=== PATIENT | female | born 1975 | race African-American/Black ===

== ENCOUNTER 2017-12-01 15:25 | Emergency (ER) | payer OTHER ==
[2017-12-01 15:35] VITALS: BMI 26.3
[2017-12-01] MEDS ORDERED: SODIUM CHLORIDE 1,000 ML IV STA (16:17)
[2017-12-01] MEDS ORDERED: ACETAMINOPHEN 1000 MG/100 ML VIAL (NON FORMULARY) IVPB ONE (16:17)
--- NOTE | 2017-12-01 16:29 | PDOC ---
History of Present Illness - History of Present Illness Initial Comments: 12/01/17 16:44 Patient is a 42 F, with no significant PMHx, who presents with her for 1 day of abdominal pain. Patient reports that her abdominal pain began yesterday afternoon, and describes it as gradual onset, constant, sharp, burning , rates 8/10, and begins in her lower quadrant and radiates up to her mid- epigastric and thoracic/lumbar midline. Patient states that she has never experienced this before. Patient also reports associated nausea but denies vomiting. She reports no change with her eating habits, reports regular bowel movements. She denies fever, chills, shortness of breath, vomiting, or diarrhea. She reports that her last menstrual period was October 18, and states that she hasn't had her period this month and its possible that she is . She did not take anything for the pain. She returned from [facility] 11 months ago. PCP: Donaldo Marie <Anusha Lim - Last Filed: 12/01/17 16:48> <Rosa Maria Allison - Last Filed: 12/01/17 21:13> - General History Source: Patient, Family, Old Records <Jose Wiggins - Last Filed: 12/06/17 08:09> - General Chief Complaint: Pain, Acute Stated Complaint: STOMACH PAIN Time Seen by Provider: 12/01/17 15:41 Past History <Anusha Lim - Last Filed: 12/01/17 16:48> <Rosa Maria Allison - Last Filed: 12/01/17 21:13> - Past Medical History COPD: No Other medical history: DENIES. - Suicide/Smoking/Psychosocial Hx Smoking History: Never smoked <Jose Wiggins - Last Filed: 12/06/17 08:09> - Past Medical History Allergies/Adverse Reactions: Allergies Allergy/AdvReac Type Severity Reaction Status Date / Time No Known Allergies Allergy Verified 12/01/17 15:31 Home Medications: Ambulatory Orders Acetaminophen [Tylenol] 650 mg PO PRN 12/01/17 Acetaminophen [Tylenol] 650 mg PO Q4H PRN #20 tablet 12/01/17 Vit Calc,Iron,Folic [ Vitamins] 1 each PO DAILY #30 tablet Review of Systems - Review of Systems Comments:: 12/01/17 16:46 GENERAL/CONSTITUTIONAL: No fever or chills. No weakness. HEAD, EYES, EARS, NOSE AND THROAT: No change in vision. No ear pain or discharge. No sore throat. CARDIOVASCULAR: No chest pain or shortness of breath. RESPIRATORY: No cough, wheezing, or hemoptysis. GASTROINTESTINAL: +abdominal pain, +nausea, no vomiting, diarrhea or constipation. GENITOURINARY: No dysuria, frequency, or change in urination. MUSCULOSKELETAL: No joint or muscle swelling or pain. No neck or back pain. SKIN: No rash NEUROLOGIC: No headache, vertigo, loss of consciousness, or change in strength/ sensation. ENDOCRINE: No increased thirst. No abnormal weight change. HEMATOLOGIC/LYMPHATIC: No anemia, easy bleeding, or history of blood clots. ALLERGIC/IMMUNOLOGIC: No hives or skin allergy. <Anusha Lim - Last Filed: 12/01/17 16:48> *Physical Exam - Vital Signs Last Vital Signs Temp Pulse Resp BP Pulse Ox 98.4 F 79 19 114/66 100 12/01/17 15:31 12/01/17 15:31 12/01/17 15:31 12/01/17 15:31 12/01/17 15:31 - Physical Exam Comments: 12/01/17 16:48 GENERAL: Awake, alert, and fully oriented, in no mild distress HEAD: No signs of trauma EYES: PERRLA, EOMI, sclera anicteric, conjunctiva clear ENT: Auricles normal inspection, hearing grossly normal, nares patent, oropharynx clear without exudates. Moist mucosa NECK: Normal ROM, supple, no lymphadenopathy, JVD, or masses LUNGS: Breath sounds equal, clear to auscultation bilaterally. No wheezes, and no crackles HEART: Regular rate and rhythm, normal S1 and S2, no murmurs, rubs or gallops ABDOMEN: Soft, periumbilical tenderness, normoactive bowel sounds. No guarding , no rebound. No masses EXTREMITIES: Normal range of motion, no edema. No clubbing or cyanosis. No cords, erythema, or tenderness NEUROLOGICAL: Cranial nerves II through XII grossly intact. Normal speech, normal gait SKIN: Warm, Dry, normal turgor, no rashes or lesions noted. <Anusha Lim - Last Filed: 12/01/17 16:48> - Vital Signs Last Vital Signs Temp Pulse Resp BP Pulse Ox 98.4 F 79 19 114/66 100 12/01/17 15:31 12/01/17 15:31 12/01/17 15:31 12/01/17 15:31 12/01/17 15:31 <Rosa Maria Allison - Last Filed: 12/01/17 21:13> - Vital Signs Last Vital Signs Temp Pulse Resp BP Pulse Ox 98.4 F 79 19 114/66 100 12/01/17 15:31 12/01/17 15:31 12/01/17 15:31 12/01/17 15:31 12/01/17 15:31 <Jose Wiggins - Last Filed: 12/06/17 08:09> ED Treatment Course - LABORATORY CBC & Chemistry Diagram: 12/01/17 17:06 12/01/17 17:06 - ADDITIONAL ORDERS Additional order review: Laboratory Results 12/01/17 12/01/17 12/01/17 17:20 17:06 17:06 Sodium 137 Potassium 3.6 Chloride 101 Carbon Dioxide 24 Anion Gap 12 BUN 7 Creatinine 0.7 Creat Clearance w eGFR > 60 Random Glucose 83 Calcium 8.5 Magnesium 2.1 Total Bilirubin 0.7 AST 10 L ALT 11 L Alkaline Phosphatase 72 Creatine Kinase 86 Troponin I < 0.02 Total Protein 7.8 Albumin 3.6 Lipase 147 Beta HCG, Quant 44236.5 Serum , Qual Urine Color Urine Appearance Urine pH Ur Specific Pierron Urine Protein Urine Glucose (UA) Urine Ketones Urine Blood Urine Nitrite Urine Bilirubin Urine Urobilinogen Ur Leukocyte Esterase Urine WBC (Auto) Urine RBC (Auto) Ur Epithelial Cells Urine Mucus Blood Type O POSITIVE Antibody Screen Cancelled 12/01/17 12/01/17 17:06 17:06 Sodium Potassium Chloride Carbon Dioxide Anion Gap BUN Creatinine Creat Clearance w eGFR Random Glucose Calcium Magnesium Total Bilirubin AST ALT Alkaline Phosphatase Creatine Kinase Troponin I Total Protein Albumin Lipase Beta HCG, Quant Serum , Qual Positive Urine Color Yellow Urine Appearance Clear Urine pH 6.0 Ur Specific Pierron 1.025 Urine Protein Negative Urine Glucose (UA) Negative Urine Ketones 2+ H Urine Blood Negative Urine Nitrite Negative Urine Bilirubin Negative Urine Urobilinogen 4.0 e.u/dl H Ur Leukocyte Esterase Trace Urine WBC (Auto) <1 Urine RBC (Auto) 4 Ur Epithelial Cells Rare Urine Mucus Few Blood Type Antibody Screen 12/01/17 17:06 RBC 4.02 MCV 87.8 MCHC 34.0 RDW 14.4 MPV 9.2 Neutrophils % 51.5 Lymphocytes % 36.6 Monocytes % 6.7 Eosinophils % 4.4 Basophils % 0.8 - Medications Given in the ED: ED Medications Discontinued Medications Generic Name Dose Route Start Last Admin Trade Name Be PRN Reason Stop Dose Admin Acetaminophen 1,000 mg 12/01/17 16:17 12/01/17 17:10 Ofirmev Injection - IVPB 12/01/17 16:18 1,000 mg ONCE ONE Administration Sodium Chloride 1,000 mls @ 1,000 mls/hr 12/01/17 16:17 12/01/17 17:10 Normal Saline - IV 12/01/17 17:16 1,000 mls/hr ASDIR STA Administration <Rosa Maria Allison - Last Filed: 12/01/17 21:13> - LABORATORY CBC & Chemistry Diagram: 12/01/17 17:06 12/01/17 17:06 <Jose Wiggins - Last Filed: 12/06/17 08:09> Medical Decision Making - Medical Decision Making 12/01/17 21:13 Patient Name: ST DELE[facility] THIS IS A PRELIMINARY REPORT FROM [facility] [employer] MACHINE OPERATOR DATE OF SERVICE: 2017-12-01 18:50:35 IMAGES: 38 EXAM: Transabdominal and transvaginal OB ultrasound HISTORY: Lower abdominal pain COMPARISON: None. FINDINGS: There is a single live intrauterine . Estimated gestational age is 6 weeks 2 days. heart rate is 132 beats per minute. Cervix is grossly closed. No cul-de-sac effusion. 2.0 cm right ovarian cyst noted. Intact blood flow is demonstrated to both ovaries. THIS DOCUMENT HAS BEEN ELECTRONICALLY SIGNED <Rosa Maria Allison - Last Filed: 12/01/17 21:13> - Medical Decision Making 12/01/17 16:27 A portion of this note was documented by scribe services under my direction. I have reviewed the details of the note, within reason, and agree with the documentation with the following case summary and management plan written by me. Patient treated in the ED. Nursing notes are reviewed and incorporated into the medical decision-making. Vital signs reviewed. Peripheral IV access obtained by the nurse, laboratory studies are drawn and sent, reviewed and interpreted by myself. Vital Signs Temp Pulse Resp BP Pulse Ox 98.4 F 79 19 114/66 100 12/01/17 15:31 18 15:31 18 15:31 18 15:31 12/01/17 15:31 42-year-old female with no past medical history presents with lower abdominal pain since yesterday. The patient reports to constant epigastric abdominal pain. No nausea, vomiting. No dysuria vaginal bleeding. Patient however did miss her period approximate one month ago. Denies take any medications came to the ED for further evaluation. It will be important to check for patient's status. If the patient is , we will need to rule out ectopic been to see versus threatened . We'll obtain blood work. However, if the tests are negative for , should consider etiology such as appendicitis. Reassess. 12/01/17 18:45 CBC, BMP 12/01/17 17:06 12/01/17 17:06 CMP Sodium 137 mmol/L (136-145) 12/01/17 17:06 Potassium 3.6 mmol/L (3.5-5.1) 12/01/17 17:06 Chloride 101 mmol/L (98-107) 12/01/17 17:06 Carbon Dioxide 24 mmol/L (21-32) 12/01/17 17:06 Anion Gap 12 (8-16) 12/01/17 17:06 BUN 7 mg/dL (7-18) 12/01/17 17:06 Creatinine 0.7 mg/dL (0.55-1.02) 12/01/17 17:06 Creat Clearance w eGFR > 60 (>60) 12/01/17 17:06 Random Glucose 83 mg/dL (74-106) 12/01/17 17:06 Calcium 8.5 mg/dL (8.5-10.1) 12/01/17 17:06 Magnesium 2.1 mg/dL (1.8-2.4) 12/01/17 17:06 Total Bilirubin 0.7 mg/dL (0.2-1.0) 12/01/17 17:06 AST 10 U/L (15-37) L 12/01/17 17:06 ALT 11 U/L (12-78) L 12/01/17 17:06 Alkaline Phosphatase 72 U/L (45-117) 12/01/17 17:06 Creatine Kinase 86 IU/L (26-192) 12/01/17 17:06 Troponin I < 0.02 ng/ml (0.00-0.05) 12/01/17 17:06 Total Protein 7.8 g/dl (6.4-8.2) 12/01/17 17:06 Albumin 3.6 g/dl (3.4-5.0) 12/01/17 17:06 Lipase 147 U/L (73-393) 12/01/17 17:06 Beta HCG, Quant 86580.5 mIU/ml 12/01/17 17:20 Serum , Qual Positive 12/01/17 17:06 Urine Test Results Urine Color Yellow 12/01/17 17:06 Urine Appearance Clear 12/01/17 17:06 Urine pH 6.0 (5.0-8.0) 12/01/17 17:06 Ur Specific Pierron 1.025 (1.001-1.035) 12/01/17 17:06 Urine Protein Negative (NEGATIVE) 12/01/17 17:06 Urine Glucose (UA) Negative (NEGATIVE) 12/01/17 17:06 Urine Ketones 2+ (NEGATIVE) H 12/01/17 17:06 Urine Blood Negative (NEGATIVE) 12/01/17 17:06 Urine Nitrite Negative (NEGATIVE) 12/01/17 17:06 Urine Bilirubin Negative (NEGATIVE) 12/01/17 17:06 Ur Leukocyte Esterase Trace (NEGATIVE) 12/01/17 17:06 Ur Epithelial Cells Rare /HPF (FEW) 12/01/17 17:06 Urine Mucus Few 12/01/17 17:06 Labs reviewed. Informed patient that her test is positive. Beta HCG 34k LMP is October 18. Pt has been now 3 times (with two pregnancies in FT deliveries, with one with twins). Denies vaginal bleeding. Tylenol had resolved the pain. If the ultrasound is unremarkable and confirms IUP, the patient can be discharged with studio data analyst follow up. 12/01/17 19:02 Case signed out to DR. Allison for further management and disposition. <Jose Wiggins - Last Filed: 12/06/17 08:09> *DC/Admit/Observation/Transfer - Attestations Scribe Attestion: 12/01/17 16:47 Documentation prepared by Anusha Lim, acting as director medical safety for Jose Wiggins MD. <Anusha Lim - Last Filed: 12/01/17 16:48> <Rosa Maria Allison - Last Filed: 12/01/17 21:13> <Jose Wiggins - Last Filed: 12/06/17 08:09> Diagnosis at time of Disposition: 6 weeks gestation of Qualifiers: Weeks of gestation: unspecified Qualified Code(s): Z34.90 - Encounter for supervision of normal , unspecified, unspecified trimester - Discharge Dispostion Disposition: HOME Condition at time of disposition: Stable - Prescriptions Prescriptions: Acetaminophen [Tylenol] 650 mg PO Q4H PRN #20 tablet PRN Reason: Pain/Fever Vit Calc,Iron,Folic [ Vitamins] 1 each PO DAILY #30 tablet - Referrals Referrals: Donaldo Marie [Primary Care Provider] - Francis Christian MD [Staff Physician] - - Patient Instructions Printed Discharge Instructions: DI for Abdominal Pain -- Early Additional Instructions: Please follow up with your doctor. Take the copy of the results and review with your studio data analyst. Please call to schedule an appointment. Take a daily vitamin. Take 650 mg tylenol every 4 hours as needed for pain. This is safe for . Print Language: BHUTANESE - Post Discharge Activity
[2017-12-01] MEDS ORDERED: ACETAMINOPHEN INJECTION 100 ML IVPB ONE (16:52)
[2017-12-01] MEDS ORDERED: ONDANSETRON 4 MG/2 ML VIAL ONE (16:52)
[2017-12-01 17:26] LABS: URINE APPEARANCE CLEAR; URINE BILIRUBIN NEGATIVE (NEGATIVE); URINE BLOOD NEGATIVE (NEGATIVE); URINE COLOR YELLOW; URINE GLUCOSE (UA) NEGATIVE (NEGATIVE); URINE KETONE 2+ (NEGATIVE); URINE LEUK ESTERASE TRACE (NEGATIVE); URINE NITRITE NEGATIVE (NEGATIVE); URINE PROTEIN NEGATIVE (NEGATIVE); URINE UROBILINOGEN 4.0 E.U/dl mg/dL (0.2-1.0)
[2017-12-01 17:31] LABS: EPI CELLS RARE /HPF (FEW); URINE MUCUS FEW
[2017-12-01 17:41] LABS: BASO % 0.8 % (0-2.0); EOS % 4.4 % (0-4.5); HEMATOCRIT 35.3 % (32.4-45.2); LYMPH % 36.6 % (8-40); MCH 29.9 pg (25.7-33.7); MEAN CELL VOLUME 87.8 fl (80-96); MEAN PLT VOLUME 9.2 fl (7.5-11.1); MONO % 6.7 % (3.8-10.2); NEUT % 51.5 % (42.8-82.8); PLATELET COUNT 265 K/MM3 (134-434); RBC 4.02 M/mm3 (3.60-5.2); RDW 14.4 % (11.6-15.6); WHITE BLOOD COUNT 7.7 K/mm3 (4.0-10.0)
[2017-12-01 17:51] LABS: ALBUMIN 3.6 g/dl (3.4-5.0); ANION GAP 12 (8-16); BILIRUBIN,TOTAL 0.7 mg/dL (0.2-1.0); BLOOD UREA NITROGEN 7 mg/dL (7-18); CALCIUM 8.5 mg/dL (8.5-10.1); CHLORIDE 101 mmol/L (98-107); CO2 24 mmol/L (21-32); CREATININE 0.7 mg/dL (0.55-1.02); GLUCOSE,RANDOM 83 mg/dL (74-106); LIPASE 147 U/L (73-393); MAGNESIUM 2.1 mg/dL (1.8-2.4); POTASSIUM 3.6 mmol/L (3.5-5.1); SGOT/AST 10 U/L (15-37); SGPT/ALT 11 U/L (12-78); SODIUM 137 mmol/L (136-145); TOT PROT 7.8 g/dl (6.4-8.2)
[2017-12-01 17:54] LABS: ALK PHOS 72 U/L (45-117)
[2017-12-01 21:22] VITALS: BP 118/69; PULSE 80; TEMP 97.9
--- NOTE | 2017-12-04 01:11 | EKG ---
Test Reason : Blood Pressure : / mmHG Vent. Rate : 071 BPM Atrial Rate : 071 BPM P-R Int : 164 ms QRS Dur : 076 ms QT Int : 380 ms P-R-T Axes : 077 050 043 degrees QTc Int : 412 ms NORMAL SINUS RHYTHM NORMAL ECG NO PREVIOUS ECGS AVAILABLE Confirmed by JOCELYNE MALONEY, SAMANTHA ([id number]) on 12/04/2017 1:10:59 AM Referred By: Confirmed By:SAMANTHA CASANOVA MD
== END 2017-12-01 21:23 | disposition home or self-care (01) ==
LOC: JER 15:25
PROC: 3E033NZ Introduction of Analgesics, Hypnotics, Sedatives into Peripheral Vein, Percutaneous Approach (ICD-10-PCS; principal; 2017-12-01)
DX: O26.891 Other specified pregnancy related conditions, first trimester (principal); R10.30 Lower abdominal pain, unspecified; Z3A.01 Less than 8 weeks gestation of pregnancy
CPT/HCPCS: 36415; 76817-TC; 80053; 81003; 81015; 82550; 83690; 83735; 84484; 84702; 84703; 85025; 86900; 87086; 93005; 93010; 96374; 99284-25; J0131; J7030

== ENCOUNTER 2017-12-12 13:35 | Emergency (ER) | payer OTHER ==
[2017-12-12 14:02] VITALS: TEMP 98.6; BMI 27.4
[2017-12-12] MEDS ORDERED: MAG HYDROX/AL HYDROX/SIMETH 30 ML UNIT-DOSE CUP PO ONE (14:37)
[2017-12-12] MEDS ORDERED: ONDANSETRON 4 MG TABLET PO ONE (14:37)
[2017-12-12] MEDS ORDERED: RANITIDINE HCL 150 MG TABLET (FP) PO ONE (14:37)
[2017-12-12] MEDS ORDERED: SUCRALFATE 1 GM TABLET (FP) PO ONE (14:37)
--- NOTE | 2017-12-12 14:38 | PDOC ---
History of Present Illness - General Chief Complaint: Chest Pain Stated Complaint: CHEST PAIN Time Seen by Provider: 12/12/17 14:00 - History of Present Illness Initial Comments: 12/12/17 14:01 42 yo G LMP at [facility] p/w chest pain. Patient reports 2 weeks of intermittent , sharp, burning, retrosternal chest pain worse with PO intake. Pain non positional. Pain radiates to back between shoulder blades and asx. with daily bilious, non bloody emesis. Patient reports acute blood streaked sputum this AM. Denies radiation of pain to jaw, neck, shoulder, arm. No sensory changes in exts. or weakness. Denies PO intake of medication. Denies F/C, SOB, palpitations , wheezing, coughing, vaginal bleeding/discharge/brunign, or dsyuria, hematuria , flank pain, diarrhea, consitpation. Denies h/o PUD, GI pathology, or abdominal procedures. Does not f/w GI. Denies h/o endoscopy. Not on PPI therapy. Does not follow with FILLER SHREDDER. Transvaginal U/S ( 12/01/17) with viable IUP 6w2d. PMD Dr. Donaldo Marie. Denies tobacco, alcohol, or illicit drug use. Past History - Past Medical History Allergies/Adverse Reactions: Allergies Allergy/AdvReac Type Severity Reaction Status Date / Time No Known Allergies Allergy Verified 12/01/17 15:31 Home Medications: Ambulatory Orders Acetaminophen [Tylenol] 650 mg PO PRN 12/01/17 Acetaminophen [Tylenol] 650 mg PO Q4H PRN #20 tablet 12/01/17 Vit Calc,Iron,Folic [ Vitamins] 1 each PO DAILY #30 tablet Cephalexin Monohydrate [Keflex -] 500 mg PO BID 7 Days #13 capsule MDD 2 tab Famotidine [Pepcid] 40 mg PO DAILY PRN #10 tablet MDD 1 tab 12/12/17 Ondansetron HCl [Zofran] 4 mg PO PRN PRN #10 tablet MDD 1 tab 12/12/17 COPD: No - Reproductive History (#): 2 Para: 1 - Immunization History Immunization Up to Date: Yes - Suicide/Smoking/Psychosocial Hx Smoking History: Never smoked Review of Systems - Review of Systems Comments:: 12/12/17 14:02 GENERAL/CONSTITUTIONAL: No fever, no lethargy HEAD, EYES, EARS, NOSE AND THROAT: No eye discharge. No ear pain or discharge. No sore throat. CARDIOVASCULAR: No chest pain. RESPIRATORY: No cough, no wheezing. GASTROINTESTINAL: + Abdominal pain, nausea,and vomiting. No diarrhea or constipation. GENITOURINARY: No dysuria, no change in urine output MUSCULOSKELETAL: No joint pain. No neck or back pain. SKIN: No rash NEUROLOGIC: No headache, loss of consciousness, irritability. ENDOCRINE: No increased thirst. No abnormal weight change. ALLERGIC/IMMUNOLOGIC: No hives or skin allergy *Physical Exam - Physical Exam Comments: 12/12/17 14:02 GENERAL: Awake, alert, and fully oriented, in no acute distress HEAD: No signs of trauma, normocephalic, atraumatic EYES: PERRLA, EOMI, sclera anicteric, conjunctiva clear ENT: Dry mucous membranes.Hearing grossly normal, nares patent, oropharynx clear without exudates. NECK: Normal ROM, supple, no lymphadenopathy, JVD, or masses LUNGS: No distress, speaks full sentences, clear to auscultation bilaterally HEART: Regular rate and rhythm, normal S1 and S2, no murmurs, rubs or gallops, peripheral pulses normal and equal bilaterally. ABDOMEN: Soft, epigatsirc and RUQ ttp, normoactive bowel sounds. No guarding, no rebound, no rigidity. No masses. Neg CVA ttp. Neg surpapubic ttp. EXTREMITIES : Normal inspection, Normal range of motion, no edema. No clubbing or cyanosis. SKIN: Warm, Dry, normal turgor, no rashes or lesions noted ED Treatment Course - LABORATORY CBC & Chemistry Diagram: 12/12/17 14:40 12/12/17 14:40 Medical Decision Making - Medical Decision Making 12/12/17 14:46 42 yo F with no significant pmh who p/w 2 weeks of intermittent, sharp, burning , retrosternal chest pain worse with PO intakeand w/ radiation to back between shoulder blades. Asx. w/ daily bilious, non bloody emesis. Endorses blood streaked sputum this AM. Denies PO intake of medication. Denies F/C, SOB, palpitations, wheezing, radiation of pain to jaw, neck, shoulder, arm, vaginal bleeding/discharge/brunign, or dsyuria, hematuria, flank pain, diarrhea, consitpation, sensory changes in exts., weakness, or coughing. Denies h/o GI pathology, abdominal procedures, endoscopy.Transvaginal U/S ( 12/01/17) with viable IUP 6w2d. PMD Dr. Donaldo Marie. Denies tobacco, alcohol, or illicit drug use. Physical exam notable for epigatsirc and RUQ ttp. HDS. ACS/GA r/o. Low suspicion of pancreatitis, appendicitis based on history and physical. Differential also gastritis, esophagitis, cholelithiasis yoan shane vs. borheaave ( less likely as pt. with absent physical findings). No vaginal bleeding or lower abdominal pain to suggest threatened , GAEL, placenta previa, or ectopic preg. ED Course: CBC, CMP, Lipase, HCG, Cardiac Pr EKG, CXR, RUQ U/S Maloox, Carafate, Ranitidine, Zofran, NS 12/12/17 15:05 12/12/17 15:10 CBC: Unremarkable 12/12/17 15:52 CMP: Unremarkable Lipase: Unremarkable UA: cloudy with 1 + blood, 15 RBC's, trace leukocyte esterase. 12/12/17 15:53 Keflex 500 mg 12/12/17 15:54 Keflex sent to pharmacy 12/12/17 18:33 Pt. stable for d/c with return precautions. Advised to f/u with FILLER SHREDDER, GI. 12/12/17 18:54 GB U/S: Unremarkable *DC/Admit/Observation/Transfer Diagnosis at time of Disposition: Abdominal pain during in first trimester - Prescriptions Prescriptions: Cephalexin Monohydrate [Keflex -] 500 mg PO BID 7 Days #13 capsule MDD 2 tab - Referrals Referrals: Donaldo Marie [Primary Care Provider] - Rosario Corey MD [Staff Physician] - Francis Christian MD [Staff Physician] - Dilip Cabrera MD [Staff Physician] - - Patient Instructions Printed Discharge Instructions: DI for Atypical Chest Pain, DI for Abdominal Pain -- Early Additional Instructions: Please return to the emergency department with any new or worsening symptoms or concerns. Please follow up with your primary care physician within 72 hours. Please follow up with GI within one week. Please follow with Special Education Secretary within one week. Please take Keflex 500 mg twice daily for the next 7 days. Can use Pepcid and Zofran as needed. - Post Discharge Activity - Attestations Physician Attestion: 12/12/17 14:03 I attest to the information provided in this note.
[2017-12-12] MEDS ORDERED: SODIUM CHLORIDE 1,000 ML IV STA (14:43)
[2017-12-12] MEDS ORDERED: ONDANSETRON 4 MG/2 ML VIAL IVPB ONE (14:51)
[2017-12-12] MEDS ORDERED: RANITIDINE HCL 150 MG TABLET (FP) ONE (14:51)
[2017-12-12] MEDS ORDERED: ONDANSETRON 4 MG/2 ML VIAL ONE (14:52)
[2017-12-12] MEDS ORDERED: MAG HYDROX/AL HYDROX/SIMETH 30 ML UNIT-DOSE CUP ONE (14:52)
[2017-12-12] MEDS ORDERED: SUCRALFATE 1 GM TABLET (FP) ONE (14:52)
[2017-12-12 14:56] LABS: BASO % 0.5 % (0-2.0); EOS % 3.4 % (0-4.5); HEMATOCRIT 34.1 % (32.4-45.2); HEMOGLOBIN 11.7 GM/dL (10.7-15.3); MCH 30.1 pg (25.7-33.7); MCHC 34.2 g/dl (32.0-36.0); MEAN CELL VOLUME 88.1 fl (80-96); MEAN PLT VOLUME 9.2 fl (7.5-11.1); NEUT % 55.1 % (42.8-82.8); PLATELET COUNT 258 K/MM3 (134-434); RBC 3.87 M/mm3 (3.60-5.2); RDW 14.4 % (11.6-15.6); WHITE BLOOD COUNT 6.5 K/mm3 (4.0-10.0)
[2017-12-12 15:01] LABS: URINE APPEARANCE SLCLOUDY; URINE BLOOD 1+ (NEGATIVE); URINE COLOR AMBER; URINE GLUCOSE (UA) NEGATIVE (NEGATIVE); URINE KETONE 2+ (NEGATIVE); URINE LEUK ESTERASE TRACE (NEGATIVE); URINE NITRITE NEGATIVE (NEGATIVE); URINE UROBILINOGEN 4.0 E.U/dl mg/dL (0.2-1.0)
[2017-12-12 15:06] LABS: URINE PROTEIN 2+ (NEGATIVE)
[2017-12-12 15:12] LABS: INR 1.19 (0.82-1.09); PROTHROMBIN TIME (PATIENT) 13.4 SEC (9.98-11.88)
[2017-12-12 15:19] LABS: ALBUMIN 3.7 g/dl (3.4-5.0); ALK PHOS 67 U/L (45-117); ANION GAP 10 (8-16); BILIRUBIN,TOTAL 0.7 mg/dL (0.2-1.0); BLOOD UREA NITROGEN 5 mg/dL (7-18); CALCIUM 9.4 mg/dL (8.5-10.1); CHLORIDE 101 mmol/L (98-107); CO2 26 mmol/L (21-32); CREATININE 0.6 mg/dL (0.55-1.02); GLUCOSE,RANDOM 87 mg/dL (74-106); SGPT/ALT 8 U/L (12-78); SODIUM 137 mmol/L (136-145); TOT PROT 7.7 g/dl (6.4-8.2)
--- NOTE | 2017-12-12 15:37 | PDOC ---
Attending Attestation - Resident Resident Name: Shaka Phillips - ED Attending Attestation I have performed the following: I have examined & evaluated the patient, The case was reviewed & discussed with the resident, I agree w/resident's findings & plan, Exceptions are as noted - HPI HPI: 12/12/17 15:34 42-year-old female with no significant past medical history, 6 weeks gestation presents with 2 weeks of intermittent epigastric/back pain described as burning , associated with nausea and some vomiting, no diarrhea. The pain is worse before and after meals, not associated with any fevers or chills. No history of postprandial abdominal pain, never had endoscopy or diagnosis of biliary stones. No smoking, alcohol use, or excessive NSAID use. No FILTER TIP CATCHER complaints of bleeding or discharge or cramping. - Physicial Exam PE: 12/12/17 15:36 Afebrile. Vital signs normal. Well-appearing, no jaundice or pallor Abdomen soft/nondistended. Epigastric discomfort to palpation without guarding or rebound, appears less tender in the right upper quadrant. No CVA tenderness - Medical Decision Making 12/12/17 15:36 Patient seen and evaluated with the resident. I agree with the overall evaluation, assessment, and management with the following summary of visit: 42-year-old female at 6 weeks gestation with intermittent epigastric pain with nausea/vomiting. Could be GERD/gastritis of , rule out biliary colic or pancreatitis. No cardiopulmonary complaints or findings, no UNIFORM MAKER complaints or findings. Labs including lipase EKG Right upper quadrant ultrasound Antacids, antiemetics Reassess
[2017-12-12 15:43] LABS: POTASSIUM 4.1 mmol/L (3.5-5.1)
[2017-12-12 15:44] LABS: SGOT/AST 12 U/L (15-37)
[2017-12-12 15:47] LABS: EPI CELLS MODERATE /HPF (FEW); URINE MUCUS MANY
[2017-12-12] MEDS ORDERED: CEPHALEXIN MONOHYDRATE 500 MG CAPSULE (UD) PO ONE (15:53)
[2017-12-12] MEDS ORDERED: CEPHALEXIN MONOHYDRATE 250 MG CAPSULE (FP) ONE (17:01)
[2017-12-12 18:02] VITALS: BP 110/75; PULSE 72
--- NOTE | 2017-12-12 19:08 | PDOC ---
*Physical Exam - Vital Signs Last Vital Signs Temp Pulse Resp BP Pulse Ox 98.6 F 72 17 110/75 99 12/12/17 14:00 12/12/17 18:00 12/12/17 18:00 12/12/17 18:00 12/12/17 18:00 - Physical Exam Comments: 12/12/17 19:01 Gen: aaox3, nad heart: +s1s2 reg lungs: cta b/l abd: soft, nt/nd +bs, neg murphys ext: no c/c/e neuro: no focal deficits ED Treatment Course - LABORATORY CBC & Chemistry Diagram: 12/12/17 14:40 12/12/17 14:40 - ADDITIONAL ORDERS Additional order review: Laboratory Results 12/12/17 12/12/17 12/12/17 15:40 15:40 14:42 PT with INR INR Sodium Potassium Chloride Carbon Dioxide Anion Gap BUN Creatinine Creat Clearance w eGFR Random Glucose Calcium Total Bilirubin AST ALT Alkaline Phosphatase Creatine Kinase 58 Troponin I < 0.02 Total Protein Albumin Lipase 151 Beta HCG, Quant 814680.1 Urine Color Lisa Urine Appearance Slcloudy Urine pH 6.0 Ur Specific [place] 1.033 Urine Protein 2+ H Urine Glucose (UA) Negative Urine Ketones 2+ H Urine Blood 1+ H Urine Nitrite Negative Urine Bilirubin 2.0 Urine Urobilinogen 4.0 e.u/dl H Ur Leukocyte Esterase Trace Urine WBC (Auto) 3 Urine RBC (Auto) 15 Ur Epithelial Cells Moderate Urine Mucus Many Blood Type Antibody Screen 12/12/17 12/12/17 12/12/17 14:40 14:40 14:40 PT with INR 13.40 H INR 1.19 H Sodium 137 Potassium 4.1 Chloride 101 Carbon Dioxide 26 Anion Gap 10 BUN 5 L Creatinine 0.6 Creat Clearance w eGFR > 60 Random Glucose 87 Calcium 9.4 Total Bilirubin 0.7 AST 12 L ALT 8 L Alkaline Phosphatase 67 Creatine Kinase Troponin I Total Protein 7.7 Albumin 3.7 Lipase Beta HCG, Quant Urine Color Urine Appearance Urine pH Ur Specific [place] Urine Protein Urine Glucose (UA) Urine Ketones Urine Blood Urine Nitrite Urine Bilirubin Urine Urobilinogen Ur Leukocyte Esterase Urine WBC (Auto) Urine RBC (Auto) Ur Epithelial Cells Urine Mucus Blood Type O POSITIVE Antibody Screen Negative 12/12/17 14:40 RBC 3.87 MCV 88.1 MCHC 34.2 RDW 14.4 MPV 9.2 Neutrophils % 55.1 Lymphocytes % 34.0 Monocytes % 7.0 Eosinophils % 3.4 Basophils % 0.5 - Medications Given in the ED: ED Medications Discontinued Medications Generic Name Dose Route Start Last Admin Trade Name Be PRN Reason Stop Dose Admin Al Hydroxide/Mg Hydroxide 30 ml 12/12/17 14:37 12/12/17 15:07 Mylanta Oral Suspension - PO 12/12/17 14:38 30 ml ONCE ONE Administration Cephalexin HCl 500 mg 12/12/17 15:53 12/12/17 17:10 Keflex - PO 12/12/17 15:54 500 mg ONCE ONE Administration Sodium Chloride 1,000 mls @ 1,000 mls/hr 12/12/17 14:43 12/12/17 15:07 Normal Saline - IV 12/12/17 15:42 1,000 mls/hr ASDIR STA Administration Ondansetron HCl 4 mg 12/12/17 14:37 12/12/17 16:04 Zofran - PO 12/12/17 14:38 Not Given ONCE ONE Ondansetron HCl 4 mg 12/12/17 14:51 12/12/17 15:07 Zofran Injection IVPB 12/12/17 14:52 4 mg ONCE ONE Administration Ranitidine HCl 150 mg 12/12/17 14:37 12/12/17 15:07 Zantac - PO 12/12/17 14:38 150 mg ONCE ONE Administration Sucralfate 2 gm 12/12/17 14:37 12/12/17 15:07 Carafate - PO 12/12/17 14:38 2 gm ONCE ONE Administration Medical Decision Making - Medical Decision Making 12/12/17 19:01 pt signed out pending official ultrasound for epigastric pain and labs -lipase not elevated -pt states no pain at this time -no acute kamlesh/no cholelithiasis -abx given for mild uti -recommended vitamins -discussed epigastric pain assoc with early preg -discussed dietary changes to help with epigastric pain -pt is stable for d/c to home *DC/Admit/Observation/Transfer Diagnosis at time of Disposition: Abdominal pain during in first trimester, Epigastric pain - Discharge Dispostion Disposition: HOME Condition at time of disposition: Stable Admit: No - Prescriptions Prescriptions: Cephalexin Monohydrate [Keflex -] 500 mg PO BID 7 Days #13 capsule MDD 2 tab Famotidine [Pepcid] 40 mg PO DAILY PRN #10 tablet MDD 1 tab PRN Reason: Indigestion Ondansetron HCl [Zofran] 4 mg PO PRN PRN #10 tablet MDD 1 tab PRN Reason: Dyspepsia - Referrals Referrals: Donaldo Marie [Primary Care Provider] - Rosario Corey MD [Staff Physician] - Dilip Cabrera MD [Staff Physician] - Francis Christian MD [Staff Physician] - - Patient Instructions Printed Discharge Instructions: DI for Atypical Chest Pain, DI for Abdominal Pain -- Early Additional Instructions: Please return to the emergency department with any new or worsening symptoms or concerns. Please follow up with your primary care physician within 72 hours. Please follow up with GI within one week. Please follow with [facility] within one week. Please take Keflex 500 mg twice daily for the next 7 days. Can use Pepcid and Zofran as needed. Please buy vitamins at the pharmacy and start to take as prescribed. - Post Discharge Activity
== END 2017-12-12 19:13 | disposition home or self-care (01) ==
LOC: JER 13:35
PROC: 3E0337Z Introduction of Electrolytic and Water Balance Substance into Peripheral Vein, Percutaneous Approach (ICD-10-PCS; principal; 2017-12-12)
PROC: 3E033GC Introduction of Other Therapeutic Substance into Peripheral Vein, Percutaneous Approach (ICD-10-PCS; 2017-12-12)
DX: O26.891 Other specified pregnancy related conditions, first trimester (principal); R10.11 Right upper quadrant pain; O23.31 Infections of other parts of urinary tract in pregnancy, first trimester; Z3A.01 Less than 8 weeks gestation of pregnancy
CPT/HCPCS: 36415; 76705-TC; 80053; 81003; 81015; 82550; 83690; 84484; 84702; 85025; 85610; 86850; 86900; 86901; 99284-25; J7030

== ENCOUNTER 2018-07-20 00:15 | Inpatient (IN) | payer OTHER ==
[~2018-07-20 00:15] MED LIST: DEXTROSE 5%-LACTATED RINGERS 1,000 ML IV SCH
[2018-07-20] MEDS ORDERED: AMPICILLIN - 2 GM in SODIUM CHLORIDE 100 ML IVPB ONE (01:00)
[2018-07-20 01:05] LABS: BASO % 0.8 % (0-2.0); EOS % 3.6 % (0-4.5); HEMATOCRIT 36.9 % (32.4-45.2); HEMOGLOBIN 12.9 GM/dL (10.7-15.3); LYMPH % 36.9 % (8-40); MCH 31.5 pg (25.7-33.7); MCHC 34.9 g/dl (32.0-36.0); MEAN CELL VOLUME 90.1 fl (80-96); MEAN PLT VOLUME 10.7 fl (7.5-11.1); MONO % 7.5 % (3.8-10.2); NEUT % 51.2 % (42.8-82.8); PLATELET COUNT 206 K/MM3 (134-434); RDW 14.3 % (11.6-15.6); WHITE BLOOD COUNT 6.9 K/mm3 (4.0-10.0)
[2018-07-20] MEDS ORDERED: LIDOCAINE HCL 1% PRESERVATIVE FREE - 30ML VIAL ONE (01:08)
[2018-07-20] MEDS ORDERED: OXYTOCIN 20 UNITS in 0.9% NS 20 UNIT/1,000 ML INFUS.BAG IV ONE ×2 (01:08→03:29)
[2018-07-20 01:41] VITALS: BMI 25.4
[2018-07-20 01:50] LABS: ANION GAP 10 MMOL/L (8-16); BLOOD UREA NITROGEN 13 mg/dL (7-18); CALCIUM 8.5 mg/dL (8.5-10.1); CHLORIDE 106 mmol/L (98-107); CO2 21 mmol/L (21-32); CREATININE 0.9 mg/dL (0.55-1.3); GLUCOSE,RANDOM 104 mg/dL (74-106); POTASSIUM 3.7 mmol/L (3.5-5.1); SODIUM 137 mmol/L (136-145)
[2018-07-20] MEDS ORDERED: METHYLERGONOVINE MALEATE 0.2 MG/1 ML AMP IM PRN (01:59)
[2018-07-20] MEDS ORDERED: WITCH HAZEL 50% (TUCKS) 40 PAD/JAR PAD TP PRN (01:59)
[2018-07-20] MEDS ORDERED: BENZOCAINE 20% 57 GM BOTTLE TP PRN (01:59)
[2018-07-20] MEDS ORDERED: BENZOCAINE 28 GM HEMORRHOIDAL OINTMENT TP PRN (01:59)
--- NOTE | 2018-07-20 01:59 | HP ---
Past Medical History - Admission Chief Complaint: Uterine contractions History of Present Illness: 43yo @ 39.2wks here with uterine contractions. No VB/LOF. +contractions. 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: Alzheimer's, CVA, Dementia, Migraine, Multiple Sclerosis, Peripheral Neuropathy, Parkinson's, Seizure, Syncope, TIA, Vertigo, Other Cardiovascular: No: AFIB, Aneurysm, Aortic Insufficiency, Aortic Stenosis, CAD, CHF, Deep Vein Thrombosis, HTN, Hyperlipdemia, MT, Mitral Insufficiency, Mitral Stenosis, Murmur, Pulmonary Hypertension, Other Pulmonary: No: Asthma, Bronchitis, Cancer, COPD, O2 Dependent, Pneumonia, Previously Intubated, Pulmonary Embolus, Pulmonary Fibrosis, Sleep Apnea, Other Gastrointestinal: No: Ascites, Cancer, Constipation, Crohn's Disease, Diverticulitis, Diverticulosis, Esophageal Varices, Gastritis, GERD, GI Bleed, Hemorrhoids, Hiatal Hernia, Inflamatory Bowel Disease, Irritable Bowel Disease, Pancreatitis, Peptic Ulcer Disease, Ulcerative Colitis, Other ...: 3 ...Para: 3 ...Term: 3 ...: 0 ...Spon : 0 ...Induced : 0 ...Multiple Gestation: 1 ...LMP: 10/18/17 ... Weeks Gestation by Dates: 39.2 ...EDC by Dates: 07/25/18 ...EDC by Sono: 07/20/18 - Past Surgical History Past Surgical History: Yes: None Hx Myomectomy: No Hx Transabdominal Cerclage: No - Smoking History Smoking history: Never smoked Have you smoked in the past 12 months: No - Alcohol/Substance Use Hx Alcohol Use: No History of Substance Use: reports: None - Social History Usual Living Arrangement: Yes: With Spouse Home Medications - Allergies Allergies/Adverse Reactions: Allergies Allergy/AdvReac Type Severity Reaction Status Date / Time No Known Allergies Allergy Verified 07/20/18 00:51 - Home Medications Home Medications: Ambulatory Orders Ferrous Sulfate [Iron] 325 mg PO DAILY 07/20/18 Vitamins (Sjr) - 1 tab PO DAILY 07/20/18 Physical Exam - Maternity Vital Signs: Vital Signs Temperature 97.8 F 07/20/18 00:30 Pulse Rate 71 07/20/18 00:30 Respiratory Rate 19 07/20/18 00:30 Blood Pressure 126/70 07/20/18 00:30 O2 Sat by Pulse Oximetry (%) - Abdominal Exam/OB Number of Fetuses: Single Presentation: Vertex Contractions: Yes Regularity: Regular Intensity: Mod/Strong Category: I Accelerations: Uniform Decelerations: None - Vaginal Exam/OB Vaginal Bleediing: No Dilatation (cm): 4 Effacement (%): 100 Presentation: Vertex/Position Station: -3 - Labs Lab Results: CBC, BMP 07/20/18 01:20 EST Problem List - Problems (1) Uterine contractions Code(s): [id number] - Assessment/Plan 43yo @ 39.2wks here in labor Admit to L&D Amp for GBS Epidural prn Cat I tracing Anticipate CHRISTIN Zuniga MD
[2018-07-20] MEDS ORDERED: OXYTOCIN 20 UNITS in 0.9% NS 20 UNIT/1,000 ML INFUS.BAG IV SCH (02:00)
--- NOTE | 2018-07-20 02:02 | PN ---
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 No anesthesia. 39wk gestation. GBS positive, insufficient prophylaxis. Spontaneous delivery of anterior shoulder. No nuchal or meconium. Apgars 9/9. Weight pending. Spontaneous delivery of placenta with 3VC. Perineum inspected, first degree midline laceration noted. Repaired after 10cc of 1% lidocaine given with 3-0 vicryl. Fundus firm. EBL 300. Mother and baby doing well.
[2018-07-20] MEDS ORDERED: ACETAMINOPHEN 325 MG TABLET (FP) ONE (03:28)
[2018-07-20] MEDS ORDERED: IBUPROFEN 600 MG TABLET (FP) PO ONE (03:28)
[2018-07-20] MEDS: ACETAMINOPHEN 325 MG TABLET (FP) PO PRN ×2 (03:30→21:40)
[2018-07-20] MEDS: IBUPROFEN 600 MG TABLET (FP) PO PRN ×2 (03:30→21:39)
[2018-07-20 04:15] LABS: INR 0.93 (0.83-1.09)
[2018-07-20 04:18] LABS: ACTIVATED PTT 29.2 SECONDS (25.2-36.5)
[2018-07-20] MEDS: AMPICILLIN - 1 GM in SODIUM CHLORIDE 100 ML IVPB SCH ×5 (05:06→21:36)
[2018-07-20] MEDS: PRENATAL VITAMINS W/ FOLIC ACID TABLET (FP) PO SCH (09:40)
[2018-07-21] MEDS: AMPICILLIN - 1 GM in SODIUM CHLORIDE 100 ML IVPB SCH (02:16)
[2018-07-21 07:49] LABS: BASO % 0.6 % (0-2.0); EOS % 6.2 % (0-4.5); HEMATOCRIT 33.7 % (32.4-45.2); HEMOGLOBIN 11.6 GM/dL (10.7-15.3); LYMPH % 38.8 % (8-40); MCH 31.6 pg (25.7-33.7); MCHC 34.6 g/dl (32.0-36.0); MEAN CELL VOLUME 91.2 fl (80-96); MEAN PLT VOLUME 9.8 fl (7.5-11.1); MONO % 5.7 % (3.8-10.2); NEUT % 48.7 % (42.8-82.8); PLATELET COUNT 196 K/MM3 (134-434); RBC 3.69 M/mm3 (3.60-5.2); WHITE BLOOD COUNT 7.8 K/mm3 (4.0-10.0)
[2018-07-21] MEDS: PRENATAL VITAMINS W/ FOLIC ACID TABLET (FP) PO SCH (09:57)
--- NOTE | 2018-07-21 11:41 | PN ---
Post Progress Note Type of Delivery: Vital Signs: Vital Signs Temperature 98.2 F 07/21/18 07:30 Pulse Rate 54 L 07/21/18 07:30 Respiratory Rate 20 07/21/18 07:30 Blood Pressure 107/65 07/21/18 07:30 O2 Sat by Pulse Oximetry (%) 100 07/20/18 03:00 Uterus: Yes: Fundus Firm Incision: Yes: Dressing dry and intact Abdomen/GI: Yes: Abdomen soft Lochia: Yes: Rubra Lochia, amount: Small Extremities: Yes: Calves non-tender Perineum: Yes: Laceration Activity: Ambulating - Labs Labs: CBC WBC 7.8 K/mm3 (4.0-10.0) 07/21/18 07:10 RBC 3.69 M/mm3 (3.60-5.2) 07/21/18 07:10 Hgb 11.6 GM/dL (10.7-15.3) 07/21/18 07:10 Hct 33.7 % (32.4-45.2) 07/21/18 07:10 MCV 91.2 fl (80-96) 07/21/18 07:10 MCH 31.6 pg (25.7-33.7) 07/21/18 07:10 MCHC 34.6 g/dl (32.0-36.0) 07/21/18 07:10 RDW 14.0 % (11.6-15.6) 07/21/18 07:10 Plt Count 196 K/MM3 (134-434) 07/21/18 07:10 MPV 9.8 fl (7.5-11.1) 07/21/18 07:10 Absolute Neuts (auto) 3.8 K/mm3 (1.5-8.0) 07/21/18 07:10 Neutrophils % 48.7 % (42.8-82.8) 07/21/18 07:10 Lymphocytes % 38.8 % (8-40) 07/21/18 07:10 Monocytes % 5.7 % (3.8-10.2) 07/21/18 07:10 Eosinophils % 6.2 % (0-4.5) H 07/21/18 07:10 Basophils % 0.6 % (0-2.0) 07/21/18 07:10 Nucleated RBC % 0 % (0-0) 07/21/18 07:10 Problem List - Problems (1) Uterine contractions Code(s): [id number] - Assessment/Plan 43yo s/p , PPD#1 Routine PP care OOB, ambulate D/C to home tomorrow Anjelica Zuniga MD
--- NOTE | 2018-07-21 14:13 | DS ---
Physical Examination Vital Signs: Vital Signs Temperature 98.2 F 07/21/18 07:30 Pulse Rate 54 L 07/21/18 07:30 Respiratory Rate 20 07/21/18 07:30 Blood Pressure 107/65 07/21/18 07:30 O2 Sat by Pulse Oximetry (%) 100 07/20/18 03:00 Constitutional: Yes: Well Nourished, No Distress, Calm Eyes: Yes: WNL, Conjunctiva Clear, EOM Intact HENT: Yes: WNL, Atraumatic, Normocephalic Neck: Yes: WNL, Supple, Trachea Midline Cardiovascular: Yes: WNL, Regular Rate and Rhythm Respiratory: Yes: WNL, Regular, CTA Bilaterally Gastrointestinal: Yes: WNL, Normal Bowel Sounds Musculoskeletal: Yes: WNL Extremities: Yes: WNL Edema: No Integumentary: Yes: WNL Neurological: Yes: WNL, Alert, Oriented ...Motor Strength: WNL Psychiatric: Yes: WNL Labs: CBC, BMP 07/21/18 07:10 07/20/18 01:20 EST Discharge Summary Reason For Visit: LABOR Current Active Problems Uterine contractions (Acute) Procedures: Principal: Hospital Course: Patient presented in active labor She had a normal spontaneous vaginal delivery Her course was uncomplicated Anjelica Zuniga MD Condition: Stable - Instructions Diet, Activity, Other Instructions: Regular Diet Disposition: HOME - Home Medications Comprehensive Discharge Medication List: Ambulatory Orders Ferrous Sulfate [Iron] 325 mg PO DAILY 07/20/18 Vitamins (Sjr) - 1 tab PO DAILY 07/20/18 Ibuprofen 600 mg PO Q6H PRN #30 tablet 07/21/18
[2018-07-21] MEDS ORDERED: SENNOSIDES/DOCUSATE COMBO (SENNA PLUS) TABLET (UD) PO PRN (22:00)
--- NOTE | 2018-07-22 08:01 | PN ---
Progress Note (short form) - Note Progress Note: ppd 2 doing well, no c/o , voids ok CBC, BMP 07/21/18 07:10 07/20/18 01:20 EST Last Vital Signs Temp Pulse Resp BP Pulse Ox 98.4 F 64 20 114/57 L 100 07/21/18 22:03 07/21/18 22:03 07/21/18 22:03 07/21/18 22:03 07/20/18 03:00 abdomen soft, no cva , uterus firm, non tender no calf tenderness plan ambulate d/c home, follow up [facility] care 4 weeks
[2018-07-22] MEDS: PRENATAL VITAMINS W/ FOLIC ACID TABLET (FP) PO SCH (09:08)
[2018-07-22] MEDS: IBUPROFEN 600 MG TABLET (FP) PO PRN (09:08)
[2018-07-22] MEDS: ACETAMINOPHEN 325 MG TABLET (FP) PO PRN (09:09)
[2018-07-22 09:24] VITALS: BP 106/69; PULSE 67; TEMP 97.9
== END 2018-07-22 14:35 | disposition home or self-care (01) | DRG 560 ==
LOC: JLDR 00:15 → J3W 04:01
PROVIDERS: ADMIT Obstetrics & Gynecology; ATTEND Obstetrics & Gynecology
PROC: 10E0XZZ Delivery of Products of Conception, External Approach (ICD-10-PCS; principal; 2018-07-20)
PROC: 0HQ9XZZ Repair Perineum Skin, External Approach (ICD-10-PCS; 2018-07-20)
DX: O99.824 Streptococcus B carrier state complicating childbirth (principal); O70.0 First degree perineal laceration during delivery; Z3A.39 39 weeks gestation of pregnancy; Z37.0 Single live birth
CPT/HCPCS: 36415; 59409; 80048; 85025; 85610; 85730; 86593; 86850; 86900; 86901

== ENCOUNTER 2020-03-18 17:43 | Emergency (ER) | payer OTHER ==
[2020-03-18] MEDS ORDERED: ACETAMINOPHEN 500 MG TABLET (FP) PO ONE (17:58)
--- NOTE | 2020-03-18 17:58 | PDOC ---
Rapid Medical Evaluation Time Seen by Provider: 03/18/20 17:53 Medical Evaluation: Allergies Allergy/AdvReac Type Severity Reaction Status Date / Time No Known Allergies Allergy Verified 07/20/18 00:51 03/18/20 17:55 I performed a brief in-person evaluation of this patient. Pt is a 44 y/o female who has "pain in her spine for a long time". This has been ongoing for the last 1 year. She has not taken anything for the pain. She denies any numbness or tingling. Pertinent physical exam findings: No midline spine tenderness to palpation. I have ordered the following: Tylenol Patient to proceed to ED for further evaluation. Discharge Disposition - Diagnosis Back pain - Referrals - Patient Instructions - Post Discharge Activity
[2020-03-18 18:01] VITALS: BP 119/68; PULSE 77; TEMP 99.6; BMI 27.8
[2020-03-18] MEDS ORDERED: ACETAMINOPHEN 500 MG TABLET (FP) ONE (18:39)
[2020-03-18] MEDS ORDERED: CYCLOBENZAPRINE HCL 10 MG TABLET (FP) PO ONE (18:58)
[2020-03-18] MEDS ORDERED: CYCLOBENZAPRINE HCL 10 MG TABLET (FP) ONE (18:59)
--- NOTE | 2020-03-18 19:00 | PDOC ---
History of Present Illness - General Chief Complaint: Back Pain Stated Complaint: NECK PAIN Time Seen by Provider: 03/18/20 17:53 History Source: Patient - History of Present Illness Occurred: reports: last week Pain Location: reports: back Past History - Medical History Allergies/Adverse Reactions: Allergies Allergy/AdvReac Type Severity Reaction Status Date / Time No Known Allergies Allergy Verified 03/18/20 17:57 Home Medications: Ambulatory Orders Ferrous Sulfate [Iron] 325 mg PO DAILY 07/20/18 Vitamins (Sjr) - 1 tab PO DAILY 07/20/18 Ibuprofen 600 mg PO Q6H PRN #30 tablet 07/21/18 Ibuprofen [Motrin -] 600 mg PO TID #21 tablet 07/22/18 Ibuprofen [Motrin -] 800 mg PO Q6H #30 tablet 03/18/20 Asthma: No Cancer: No Cardiac Disorders: No COPD: No Diabetes: No HTN: No Seizures: No Thyroid Disease: No - Reproductive History (#): 2 Para: 1 Therapeutic (s) & number: No Spontaneous : 0 - Immunization History Immunization Up to Date: Yes - Psycho-Social/Smoking History Smoking History: Never smoked Have you smoked in the past 12 months: No - Substance Abuse Hx (Audit-C & DAST Scrn) How often the patient has a drink containing alcohol: Never Score: In Men: 4 or > Positive; In Women: 3 or > Positive: 0 Screen Result (Pos requires Nsg. Audit-10AR): Negative In the last yr the pt used illegal drug/Rx for NonMed reason: No Score: Yes response is considered Positive: 0 Screen Result (Positive result requires Nsg. DAST-10): Negative Review of Systems - Review of Systems Constitutional: No: Chills, Fever, Unexplained wgt Loss : No: Burning, Dysuria, Flank Pain, Hematuria Musculoskeletal: Yes: Back Pain Neurological: No: Numbness, Tingling, Weakness *Physical Exam - Vital Signs Last Vital Signs Temp Pulse Resp BP Pulse Ox 99.6 F 77 16 119/68 99 03/18/20 17:59 03/18/20 17:59 03/18/20 17:59 03/18/20 17:59 03/18/20 17:59 - Physical Exam General Appearance: Yes: Appropriately Dressed. No: Apparent Distress HEENT: positive: Normal Voice Neck: positive: Supple Respiratory/Chest: positive: Lungs Clear, Normal Breath Sounds. negative: Respiratory Distress Cardiovascular: positive: Regular Rate, S1, S2 Gastrointestinal/Abdominal: positive: Soft. negative: Tender Musculoskeletal: positive: Vertebral Tenderness (to midline T spine, no obvious scoliosis). negative: CVA Tenderness Integumentary: positive: Dry, Warm Neurologic: positive: Fully Oriented, Alert, Normal Mood/Affect ED Treatment Course - Medications Given in the ED: ED Medications Discontinued Medications Generic Name Dose Route Start Last Admin Trade Name Be PRN Reason Stop Dose Admin Acetaminophen 1,000 mg 03/18/20 17:58 03/18/20 18:43 Tylenol - PO 03/18/20 17:59 1,000 mg ONCE ONE Administration Medical Decision Making - Medical Decision Making 03/18/20 19:06 44 yo F, no sig hx, here w/ mid thoracic back pain and and off x 1 week, worse w/ certain movement. No sensory changes. No CP, sob or palpitations. No trauma. has not taken anything for pain. Had similar pain few years ago and told by PMD that "My spine wasn't straight" on xray, per pt see exam Back pain Recurrent Told ? mild scoliosis in past No red flags today Dc w/ pain control PMD f/u Discharge - Discharge Information Problems reviewed: Yes Clinical Impression/Diagnosis: Back pain Qualifiers: Back pain location: thoracic back pain Chronicity: unspecified Back pain laterality: midline Qualified Code(s): M54.6 - Pain in thoracic spine Condition: Good Disposition: HOME - Additional Discharge Information Prescriptions: Ibuprofen [Motrin -] 800 mg PO Q6H #30 tablet - Follow up/Referral Referrals: Donaldo Marie [Primary Care Provider] - - Patient Discharge Instructions Patient Printed Discharge Instructions: DI for Thoracic Back Pain Additional Instructions: Take medications as needed and follow up with rick PMD as needed - Post Discharge Activity
== END 2020-03-18 19:01 | disposition home or self-care (01) ==
LOC: JERFT 17:43
DX: M54.6 Pain in thoracic spine (principal)
CPT/HCPCS: 99283-25